=== PATIENT | female | born 1995 | race American Indian/Alaskan Native ===

== ENCOUNTER 2016-12-12 19:46 | Emergency (ER) | payer MEDICAID, OTHER ==
--- NOTE | 2016-12-13 01:01 | Emergency Department Report ---
ED N/V/D HPI - General Chief complaint: Nausea/Vomiting/Diarrhea Stated complaint: NAUSEA/LIGHTHEADED Time Seen by Provider: 12/13/16 00:55 Source: patient Mode of arrival: Ambulatory Limitations: No Limitations - History of Present Illness Initial comments: 21-year-old female comes in for nausea and dizziness 2 weeks. Patient takes no [id number] medication she did do a test back on October 28 which was negative. She is not sure when she had her last period. He denies any nausea at this time saline down and getting up she becomes dizzy only in the morning. She is eating and drinking and voiding well. Denies any fever or chills or vomiting. Reports is up-to-date on all her shots she has no past medical history of anything significant - Related Data Previous Rx's Medication Instructions Recorded Last Taken Type Ciprofloxacin HCl [Cipro] 250 mg PO Q12H #6 tablet 02/10/15 Unknown Rx Ibuprofen [Motrin 400 MG tab] 400 mg PO Q8H PRN #20 tablet 02/10/15 Unknown Rx Allergies Allergy/AdvReac Type Severity Reaction Status Date / Time No Known Allergies Allergy Unverified 02/10/15 17:18 ED Review of Systems ROS: Stated complaint: NAUSEA/LIGHTHEADED Other details as noted in HPI Constitutional: no symptoms reported Eyes: as per HPI ENT: as per HPI Respiratory: no symptoms reported Cardiovascular: as per HPI Gastrointestinal: as per HPI, nausea. denies: vomiting, diarrhea, constipation Neurological: as per HPI ED Past Medical Hx - Past Medical History Previous Medical History?: No - Surgical History Past Surgical History?: No - Social History Smoking Status: Never Smoker Substance Use Type: None - Medications Home Medications: Home Medications Medication Instructions Recorded Confirmed Last Taken Type Ciprofloxacin HCl [Cipro] 250 mg PO Q12H #6 tablet 02/10/15 Unknown Rx Ibuprofen [Motrin 400 MG tab] 400 mg PO Q8H PRN #20 tablet 02/10/15 Unknown Rx ED Physical Exam - General Limitations: No Limitations ED Course Vital Signs 12/12/16 12/13/16 21:32 00:08 Temperature 97.5 F L 98.2 F Pulse Rate 78 82 Respiratory 16 16 Rate Blood Pressure 122/80 Blood Pressure 137/89 [Right] O2 Sat by Pulse 100 100 Oximetry Critical care attestation.: If time is entered above; I have spent that time in minutes in the direct care of this critically ill patient, excluding procedure time. ED Disposition Clinical Impression: Nausea & vomiting Disposition: LEFT AGAINST MEDICAL ADVICE Is pt being admited?: No Does the pt Need Aspirin: No Referrals: PRIMARY CARE, [Primary Care Provider] - 3-5 Days
[2016-12-13 04:20] VITALS: BP 137/89
== END 2016-12-13 01:00 | disposition home or self-care (01) ==
LOC: ED 19:46
DX: R11.0 Nausea (principal); R42 Dizziness and giddiness
CPT/HCPCS: 99281